=== PATIENT | male | born 1950 | race Caucasian/White ===

== ENCOUNTER 2022-07-21 10:08 | Inpatient (IN) ==
[2022-07-21] MEDS ORDERED: DUONEB NEB STA (10:12)
[2022-07-21] MEDS ORDERED: SOLU-MEDROL 125 MG IVP STA (10:12)
--- NOTE | 2022-07-21 10:12 | ED.PDOC ---
General ED Provider: Dr. ARNOLD HEART MD Chief Complaint: Shortness of Air Stated Complaint: Patient has advanced COPD and is on home oxygen at 3L/min NC. He presents with dyspnea, productive cough and weakness for one week. Denies fever, chills, chest pain, edema. Time Seen by Provider: 07/21/22 10:12 Primary Care Provider: DENYS FRANCO MD Nursing and Triage Documentation Reviewed and Agree: Yes Does patient meet sepsis criteria?: No System Inflammatory Response Syndrome: Not Applicable Sepsis Protocol: For patient's 13 years and over: Temp is 96.8 and below OR 101 and greater Pulse >90 BPM Resp >20/minute Acutely Altered Mental Status Are patient's symptoms suggestive of a new infection, such as: -Pneumonia -Skin, Soft Tissue -Endocarditis -UTI -Bone, Joint Infection -Implantable Device -Acute Abdominal Infection -Wound Infection -Meningitis -Blood Stream Catheter Infection -Unknown Respiratory Complaint Exam Shortness of Air Complaint/Exam Onset/Duration: one week of dyspnea, productive cough and weakness Symptoms Are: Still present Timing: Constant Initial Severity: Mild Current Severity: Moderate Character: Reports Dyspnea at rest and Dyspnea on exertion Aggravating: Reports Movement Alleviating: Reports Bronchodilators and Oxygen Associated Signs and Symptoms: Reports Cough Related History: Reports Similar episode History of Healthcare-Acquired Pneumonia: No Pulmonary Embolism Risk Factors: Reports None Pseudomonas Risk Factors: Reports None Tuberculosis Risk Factors: Reports None Home Oxygen Use: Yes Respiratory Distress: Mild Stridor Present: No Tracheal Deviation: No Subcutaneous Emphysema: No Accessory Muscle Use: No Retractions: Not Present Diminished Breath Sounds: Yes Prolonged Expiratory Phase: No Unable to Speak Full Sentences: No Fatigue: No Leg Swelling: No Otilia's Sign Present: No Grunting Respirations: No Kussmaul Respirations: No Review of Systems Review Of Systems Constitutional: Reports Weakness Eyes: Reports No symptoms Ears, Nose, Mouth, Throat: Reports No symptoms Respiratory: Reports Cough and Short of air Cardiac: Reports No symptoms GI: Reports No symptoms : Reports No symptoms Musculoskeletal: Reports No symptoms Skin: Reports No symptoms Neurological: Reports No symptoms Endocrine: Reports No symptoms Hematologic/Lymphatic: Reports No symptoms All Other Systems: Reviewed and Negative Physical Exam Physical Exam Appearance: Reports No pain distress, Well-nourished and Other (Chronically ill appearing elderly male who is tachypneic. No use of accessory respiratory muscles. ) Ill-appearing: Moderate Pain Distress: None Eyes: Reports Not Examined ENT: Reports Nose normal and Oropharynx normal Neck: Supple Respiratory: Reports Airway patent, Breath sounds clear, Breath sounds equal, Breath sounds diminished and Respirations nonlabored Cardiovascular: Reports RRR, No rub and No murmur GI/: Reports Soft, Nontender, No masses and Bowel sounds normal Musculoskeletal: Reports No edema Skin: Reports Warm, Dry and Normal color Neurological: Reports Motor intact, Alert and Oriented Psychiatric: Reports Affect appropriate and Mood appropriate Interpretation Radiology Interpretation Radiology Interpretation By: Radiologist Exam Interpreted: Portable CXR (right sided basilar consolidation) EKG Interpretation Time of EKG #1: 10:42 Rate: Normal Rhythm: Sinus Ectopy: PACs [place]: NL ST Segment: Normal Interpretation: normal sinus rhythm with frequent PACS Physician Notification Case Discussed Physician Notified: Dr Franco Time of Notification: 11:26 Comments: Dr Franco requested admission to the hospitalist Critical Care Note Critical Care Note Total Critical Care Time (mins): 0 Course Course Hematology/Chemistry: 07/21/22 10:30 07/21/22 10:30 Orders, Labs, Meds: Lab Review 07/21/22 07/21/22 07/21/22 10:20 10:25 10:30 WBC 13.19 H RBC 3.25 L Hgb 8.7 L Hct 27.9 L MCV 85.8 MCH 26.8 L MCHC 31.2 L RDW Coeff of Blanca 13.8 Plt Count 347 Immature Gran % (Auto) 0.2 Neut % (Auto) 73.6 Lymph % (Auto) 14.9 [place] % (Auto) 11.1 H Eos % (Auto) 0.0 Baso % (Auto) 0.2 Neut # (Auto) 9.7 H Lymph # (Auto) 2.0 [place] # (Auto) 1.5 Eos # (Auto) 0.0 Baso # (Auto) 0.0 Immature Gran # (Auto) 0.0 Puncture Site Rrad Base Excess 25.5 H O2 Saturation 92.9 L ABG pH 7.49 H ABG pCO2 64.0 H ABG pO2 61.0 L ABG HCO3 48.8 H ABG Total CO2 50.8 H Luis Felipe Test Pos Hemoglobin 1.6 H Oxyhemoglobin 88.3 L Carboxyhemoglobin 1.9 H Total Hemoglobin 9.7 L O2 Delivery Device Cannula Oxygen Liter Flow 3.00 Sodium Potassium Chloride Carbon Dioxide Anion Gap BUN Creatinine Estimated GFR (MDRD) BUN/Creatinine Ratio Glucose Calcium Total Bilirubin AST ALT Alkaline Phosphatase Troponin I NT-Pro-B Natriuret Pep Total Protein Albumin Globulin Albumin/Globulin Ratio Influ A Molecular Assay Negative by naat Influ B Molecular Assay Negative by naat 07/21/22 10:30 WBC RBC Hgb Hct MCV MCH MCHC RDW Coeff of Blanca Plt Count Immature Gran % (Auto) Neut % (Auto) Lymph % (Auto) [place] % (Auto) Eos % (Auto) Baso % (Auto) Neut # (Auto) Lymph # (Auto) [place] # (Auto) Eos # (Auto) Baso # (Auto) Immature Gran # (Auto) Puncture Site Base Excess O2 Saturation ABG pH ABG pCO2 ABG pO2 ABG HCO3 ABG Total CO2 Luis Felipe Test Hemoglobin Oxyhemoglobin Carboxyhemoglobin Total Hemoglobin O2 Delivery Device Oxygen Liter Flow Sodium 135.1 Potassium 3.59 Chloride 88.3 L Carbon Dioxide 38.1 H Anion Gap 12.29 BUN 29.1 H Creatinine 1.52 H Estimated GFR (MDRD) 45.00 BUN/Creatinine Ratio 19.14 Glucose 125.2 H Calcium 8.49 Total Bilirubin 0.33 AST 53.0 ALT 21.4 Alkaline Phosphatase 75.2 Troponin I 0.016 NT-Pro-B Natriuret Pep 309.000 H Total Protein 7.39 Albumin 3.96 Globulin 3.43 Albumin/Globulin Ratio 1.15 Influ A Molecular Assay Influ B Molecular Assay Orders Category Date Time Status ABG DRAW REQUEST Stat CARDIO 07/21/22 10:21 Completed EKG-(ED ONLY) Stat CARDIO 07/21/22 10:12 Completed NEBULIZER TREATMENT Stat CARDIO 07/21/22 10:13 Completed ABG COOX Stat LAB 07/21/22 10:25 Completed CBC W/ AUTO DIFF Stat LAB 07/21/22 10:30 Completed CMP [COMPREHENSIVE METABOLIC PANEL] Stat LAB 07/21/22 10:30 Completed COVID [SARS COV-2 RNA RAPID IRWIN] Stat LAB 07/21/22 10:20 Received FLU A & B MOLECULAR [FLU A/B MOLECULAR] Stat LAB 07/21/22 10:20 Completed NT-PROBNP Stat LAB 07/21/22 10:30 Completed TROPONIN I Stat LAB 07/21/22 10:30 Completed URINALYSIS C & S IF INDICATED Stat LAB 07/21/22 10:13 Uncollected Ipratropium/Albuterol Neb [Duoneb] MEDS 07/21/22 10:12 Discontinued 3 ml NEB ONCE STA Methylprednisolone Sod Succ/Pf [Solu-Medrol 125 mg] MEDS 07/21/22 10:12 Discontinued 125 mg IVP ONCE STA CXR [CHEST, 1V AP ONLY] Stat RADS 07/21/22 10:12 Completed Medications Discontinued Medications Generic Name Dose Route Start Last Admin Trade Name Colleen PRN Reason Stop Dose Admin Albuterol/Ipratropium 3 ml 07/21/22 10:12 07/21/22 10:36 Ipratropium/Albuterol Vial.Neb NEB 07/21/22 10:13 3 ml ONCE STA Administration Methylprednisolone Sodium Succinate 125 mg 07/21/22 10:12 07/21/22 10:21 Methylprednisolone Sod Succ/Pf 125 Mg/2 Ml Vial IVP 07/21/22 10:13 125 mg ONCE STA Administration Vital Signs: Temp Pulse Resp BP Pulse Ox 07/21/22 10:12 98.6 F 98 16 123/57 L 92 L Discharge Plan Discharge Patient Disposition: ADMITTED INPATIENT Discharge Problem: Community acquired pneumonia, COPD (chronic obstructive pulmonary disease), Acute on chronic respiratory failure with hypoxia and hypercapnia, Acute renal insufficiency, Anemia Did you review [place]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
[2022-07-21 10:32] LABS: ABG O2 HGB 88.3 % (95-100); ABG PH 7.49 (7.35-7.45); BEecf 25.5 (-2.0-3.0); COHb 1.9 (0.5-1.5); HCO3 48.8 (21-28); MetHb 1.6 (0-1.5); TCO2 50.8 (19-24); sO2 92.9 % (94-98); tHb 9.7 g/dl (11.7-17.4)
[2022-07-21 10:34] LABS: BASOPHILS % (AUTO) 0.2 % (0.0-3.0); HEMATOCRIT 27.9 % (42.0-52.0); HEMOGLOBIN 8.7 g/dl (14.0-18.0); IMMATURE GRANULOCYTE % (AUTO) 0.2 % (0.0-5.0); LYMPHOCYTES % (AUTO) 14.9 (10.0-50.0); MEAN CORPUSCULAR HEMOGLOBIN 26.8 pg (27.0-31.0); MEAN CORPUSCULAR HGB CONC 31.2 (31.8-35.4); MEAN CORPUSCULAR VOLUME 85.8 fl (80.0-94.0); MONOCYTES # (AUTO) 1.5 K/uL (0.4-2.0); MONOCYTES % (AUTO) 11.1 (0-10); NEUTROPHILS # (AUTO) 9.7 K/ul (2.0-6.9); NEUTROPHILS % (AUTO) 73.6 % (42.2-75.2); PLATELET COUNT 347 10^3/uL (140-440); RDW COEFFICIENT OF VARIATION 13.8 % (11.6-14.8); RED BLOOD COUNT 3.25 10^6/ul (4.70-6.10); WHITE BLOOD COUNT 13.19 K/ul (4.2-10.2)
[2022-07-21 10:47] LABS: ALANINE AMINOTRANSFERASE 21.4 U/L (0-50); ALBUMIN 3.96 g/dL (3.5-5.0); ALKALINE PHOSPHATASE 75.2 U/L (56-119); BILIRUBIN,TOTAL 0.33 mg/dL (0.2-1.3); BLOOD UREA NITROGEN 29.1 mg/dL (9-20); CALCIUM 8.49 mg/dL (8.4-10.2); CHLORIDE 88.3 mmol/L (98-107); CREATININE 1.52 mg/dL (0.60-1.10); GLUCOSE 125.2 mg/dL (74-106); POTASSIUM 3.59 mmol/L (3.5-5.1); SODIUM 135.1 mmol/L (134.5-145); TOTAL PROTEIN 7.39 g/dL (6.3-8.2)
[2022-07-21 10:53] LABS: CARBON DIOXIDE 38.1 mmol/L (22-30.0)
[2022-07-21 10:55] LABS: MOLECULAR FLU A NEGATIVE BY NAAT (NEGATIVE); MOLECULAR FLU B NEGATIVE BY NAAT (NEGATIVE)
[2022-07-21 10:58] LABS: TROPONIN I 0.016 ng/ml (0.0000-0.120)
--- NOTE | 2022-07-21 11:15 | DI ---
EXAM: Chest one view, frontal view only. HISTORY: Dyspnea. COMPARISON: 10/18/2012. FINDINGS: Heart size normal. Consolidation right lung base. Bibasilar bronchial thickening and ret icular opacities. Calcified granulomatous changes noted. No pleural effusion or pneumothorax. Old left-sided rib fractures. IMPRESSION: Suspect bibasilar pneumonia, greater on the right.
--- NOTE | 2022-07-21 11:44 | PCM ---
Chief Complaint Chief Complaint: dyspnea and weakness History of Present Illness History of Present Illness: Patient presents with productive cough, increasing dyspnea and weakness for one week. He is admitted now with pneumonia, acute renal insufficiency and acute on chronic respiratory failure with hypoxia and hypercapnia. Review of Systems Constitutional: Reports Weakness Eyes: Reports No symptoms Ears: Reports No symptoms Nose: Reports No symptoms Throat: Reports No symptoms Mouth: Reports No symptoms Respiratory: Reports Cough and Shortness of air Cardiovascular: Reports No symptoms Gastrointestinal: Reports No symptoms Genitourinary: Reports No symptoms Neurological: Reports No symptoms Musculoskeletal: Reports No symptoms Skin: Reports No symptoms Immunology: Reports No symptoms Hematology: Reports No symptoms Endocrine: Reports No symptoms Psychiatric: Reports No symptoms Allergies Allergies Allergy/AdvReac Type Severity Reaction Status Date / Time No Known Allergies Allergy Unverified 07/21/22 10:16 [facility] Medical History (Updated 07/21/22 @ 11:32 by ALESHA NICHOLAS RN) COPD (chronic obstructive pulmonary disease) Body Composition Height: 5 ft 11 in Weight: 92 kg Body Mass Index (BMI): 28.3 Vital Signs Temperature: 98.6 F Pulse Rate: 98 Respiratory Rate: 16 Blood Pressure: 123/57 O2 Sat by Pulse Oximetry: 92 Physical Examination Appearance: Reports Ill-appearing, No pain distress, Well-nourished and Other (Tachypneic without respiratory distress.) Ill-appearing: Moderate Pain Distress: None Eyes: Reports Not Examined ENT: Reports Nose normal and Oropharynx normal Neck: Supple Respiratory: Reports Airway patent, Breath sounds clear, Breath sounds equal, Breath sounds diminished and Respirations nonlabored Cardiovascular: Reports RRR, No rub and No murmur GI/: Reports Soft, Nontender, No masses, Bowel sounds normal and No Organomegaly Musculoskeletal: Reports No edema Skin: Reports Warm, Dry and Normal color Neurological: Reports Sensation intact, Motor intact, Alert and Oriented Psychiatric: Reports Affect appropriate and Mood appropriate Lab/Tests/Diagnostic Imaging Lab/Tests/Diagnostic Imaging: Lab Review 07/21/22 07/21/22 07/21/22 10:20 10:25 10:30 WBC 13.19 H RBC 3.25 L Hgb 8.7 L Hct 27.9 L MCV 85.8 MCH 26.8 L MCHC 31.2 L RDW Coeff of Blanca 13.8 Plt Count 347 Immature Gran % (Auto) 0.2 Neut % (Auto) 73.6 Lymph % (Auto) 14.9 [place] % (Auto) 11.1 H Eos % (Auto) 0.0 Baso % (Auto) 0.2 Neut # (Auto) 9.7 H Lymph # (Auto) 2.0 [place] # (Auto) 1.5 Eos # (Auto) 0.0 Baso # (Auto) 0.0 Immature Gran # (Auto) 0.0 Puncture Site Rrad Base Excess 25.5 H O2 Saturation 92.9 L ABG pH 7.49 H ABG pCO2 64.0 H ABG pO2 61.0 L ABG HCO3 48.8 H ABG Total CO2 50.8 H Luis Felipe Test Pos Hemoglobin 1.6 H Oxyhemoglobin 88.3 L Carboxyhemoglobin 1.9 H Total Hemoglobin 9.7 L O2 Delivery Device Cannula Oxygen Liter Flow 3.00 Sodium Potassium Chloride Carbon Dioxide Anion Gap BUN Creatinine Estimated GFR (MDRD) BUN/Creatinine Ratio Glucose Calcium Total Bilirubin AST ALT Alkaline Phosphatase Troponin I NT-Pro-B Natriuret Pep Total Protein Albumin Globulin Albumin/Globulin Ratio Influ A Molecular Assay Negative by naat Influ B Molecular Assay Negative by naat 07/21/22 10:30 WBC RBC Hgb Hct MCV MCH MCHC RDW Coeff of Blanca Plt Count Immature Gran % (Auto) Neut % (Auto) Lymph % (Auto) [place] % (Auto) Eos % (Auto) Baso % (Auto) Neut # (Auto) Lymph # (Auto) [place] # (Auto) Eos # (Auto) Baso # (Auto) Immature Gran # (Auto) Puncture Site Base Excess O2 Saturation ABG pH ABG pCO2 ABG pO2 ABG HCO3 ABG Total CO2 Luis Felipe Test Hemoglobin Oxyhemoglobin Carboxyhemoglobin Total Hemoglobin O2 Delivery Device Oxygen Liter Flow Sodium 135.1 Potassium 3.59 Chloride 88.3 L Carbon Dioxide 38.1 H Anion Gap 12.29 BUN 29.1 H Creatinine 1.52 H Estimated GFR (MDRD) 45.00 BUN/Creatinine Ratio 19.14 Glucose 125.2 H Calcium 8.49 Total Bilirubin 0.33 AST 53.0 ALT 21.4 Alkaline Phosphatase 75.2 Troponin I 0.016 NT-Pro-B Natriuret Pep 309.000 H Total Protein 7.39 Albumin 3.96 Globulin 3.43 Albumin/Globulin Ratio 1.15 Influ A Molecular Assay Influ B Molecular Assay Orders Category Date Time Status ADMIT PATIENT INPATIENT .TO [facility] (MONITORED BED) ADMISSION 07/21/22 11:31 Ordered ABG DRAW REQUEST Stat CARDIO 07/21/22 10:21 Completed EKG-(ED ONLY) Stat CARDIO 07/21/22 10:12 Completed NEBULIZER TREATMENT Routine CARDIO 07/21/22 11:36 Ordered NEBULIZER TREATMENT Stat CARDIO 07/21/22 10:13 Completed OXYGEN Routine CARDIO 07/21/22 11:32 Ordered ACTIVITY .Up With Assistance CARE 07/21/22 11:31 Ordered INTAKE & OUTPUT Q8HR CARE 07/21/22 11:31 Ordered IP: INSERT SALINE LOCK ONCE CARE 07/21/22 11:31 Ordered TELEMETRY MONITORING TELE CARE 07/21/22 11:31 Ordered VITAL SIGNS Q4HR CARE 07/21/22 11:32 Ordered VITAL SIGNS Q8HR CARE 07/21/22 11:31 Ordered REGULAR DIET DIETARY 07/21/22 Lunch Ordered ABG COOX Stat LAB 07/21/22 10:25 Completed CBC W/ AUTO DIFF DAILY@0600 LAB 07/22/22 06:00 Ordered CBC W/ AUTO DIFF DAILY@0600 LAB 07/23/22 06:00 Ordered CBC W/ AUTO DIFF Stat LAB 07/21/22 10:30 Completed CMP [COMPREHENSIVE METABOLIC PANEL] Stat LAB 07/21/22 10:30 Completed COMPREHENSIVE METABOLIC PANEL DAILY@0600 LAB 07/22/22 06:00 Ordered COMPREHENSIVE METABOLIC PANEL DAILY@0600 LAB 07/23/22 06:00 Ordered COVID [SARS COV-2 RNA RAPID IRWIN] Stat LAB 07/21/22 10:20 Received FLU A & B MOLECULAR [FLU A/B MOLECULAR] Stat LAB 07/21/22 10:20 Completed NT-PROBNP Stat LAB 07/21/22 10:30 Completed TROPONIN I Stat LAB 07/21/22 10:30 Completed URINALYSIS C & S IF INDICATED Stat LAB 07/21/22 10:13 Uncollected 1 gm/50 ml IV Daily Jovita MEDS 07/21/22 12:00 Ordered Ceftriaxone/D5w 1 gm Premix [Rocephin 1 gm/50 ml D5w] 1 gm in 50 ml IV DAILY Azithromycin Inj [Zithromax] 500 mg MEDS 07/21/22 12:00 Ordered 0.9 % Sodium Chloride [Sodium Chloride] 250 ml IV DAILY Enoxaparin Sodium [Lovenox] MEDS 07/21/22 12:00 Ordered 30 mg SUBCUT DAILY Ipratropium/Albuterol Neb [Duoneb] MEDS 07/21/22 10:12 Discontinued 3 ml NEB ONCE STA Ipratropium/Albuterol Neb [Duoneb] MEDS 07/21/22 14:00 Ordered 3 ml NEB RTQ4H Methylprednisolone Sod Succ/Pf [Solu-Medrol 125 mg] MEDS 07/21/22 10:12 Discontinued 125 mg IVP ONCE STA Methylprednisolone Sod Succ/Pf [Solu-Medrol 125 mg] MEDS 07/21/22 12:00 Ordered 125 mg IVP Q8H Potassium Chloride in 0.9%NaCl [Sodium Chloride 0.9%- MEDS 07/21/22 12:00 Ordered KCl 20 Meq] 1,000 ml IV 100 mls/hr RESUSCITATION STATUS Routine OTHERS 07/21/22 11:31 Ordered CXR [CHEST, 1V AP ONLY] Stat RADS 07/21/22 10:12 Completed CXR [CHEST, 1V AP ONLY] Timed RADS 07/22/22 07:31 Ordered Medications Discontinued Medications Generic Name Dose Route Start Last Admin Trade Name Freq PRN Reason Stop Dose Admin Albuterol/Ipratropium 3 ml 07/21/22 10:12 07/21/22 10:36 Ipratropium/Albuterol Vial.Neb NEB 07/21/22 10:13 3 ml ONCE STA Administration Methylprednisolone Sodium Succinate 125 mg 07/21/22 10:12 07/21/22 10:21 Methylprednisolone Sod Succ/Pf 125 Mg/2 Ml Vial IVP 07/21/22 10:13 125 mg ONCE STA Administration Assessment (1) Community acquired pneumonia: Status: Acute Code(s): J18.9 - Pneumonia, unspecified organism SNOMED Code(s): 272111539 (2) COPD (chronic obstructive pulmonary disease): Status: Acute Code(s): J44.9 - Chronic obstructive pulmonary disease, unspecified SNOMED Code(s): 47153059 (3) Acute on chronic respiratory failure with hypoxia and hypercapnia: Status: Acute Code(s): J96.21 - Acute and chronic respiratory failure with hypoxia; J96.22 - Acute and chronic respiratory failure with hypercapnia SNOMED Code(s): 88428863252579 (4) Acute renal insufficiency: Status: Acute Code(s): N28.9 - Disorder of kidney and ureter, unspecified SNOMED Code(s): 896603673 (5) Anemia: Status: Acute Code(s): D64.9 - Anemia, unspecified SNOMED Code(s): 855716799 Plan Plan: Admit for IV antibiotics, neb treatments, IV steroids. PT to see for strengthening and conditioning. Hemoccult stools.
[2022-07-21] MEDS ORDERED: SODIUM CHLORIDE 0.9%-KCL 20 MEQ 1,000 ML IV SCH (12:00)
[2022-07-21] MEDS ORDERED: SOLU-MEDROL 125 MG IVP SCH (12:00)
[2022-07-21] MEDS ORDERED: LOVENOX SUBCUT SCH (12:00)
[2022-07-21 12:07] LABS: SARS COV-2 RNA RAPID NAAT POSITIVE (NEGATIVE)
[2022-07-21] MEDS: ROCEPHIN 1 GM/50 ML D5W 1 GM/50 ML BAG IV SCH (12:15)
[2022-07-21 12:58] VITALS: BMI 28.5
[2022-07-21 13:17] LABS: BILIRUBIN,URINE Negative (NEGATIVE); CLARITY,URINE Clear (CLEAR); COLOR,URINE Yellow (YELLOW); GLUCOSE, URINE (UA) Negative (NEGATIVE); KETONES,URINE Negative (NEGATIVE); LEUKOCYTE ESTERASE ,URINE Negative (NEGATIVE); NITRITE,URINE Negative (NEGATIVE); PROTEIN,URINE 1+ (NEGATIVE); URINE, BLOOD 1+ (NEGATIVE); UROBILINOGEN,URINE 0.2 (0.2)
[2022-07-21 13:27] LABS: MUCUS,URINE TRACE (NOT PRESENT)
[2022-07-21] MEDS ORDERED: TYLENOL PO PRN (13:39)
[2022-07-21] MEDS ORDERED: NITROSTAT SL PRN (13:39)
[2022-07-21] MEDS ORDERED: ATROPINE SULFATE PFS IVP PRN (13:39)
[2022-07-21] MEDS ORDERED: VEKLURY 200 MG in SODIUM CHLORIDE 250 ML IV ONE (13:41)
[2022-07-21 13:47] LABS: RETICULOCYTE % 0.86 %; RETICULOCYTE HEMOGLOBIN 24.9
[2022-07-21] MEDS ORDERED: VENTOLIN HFA (PER PUFF-WITH SPACER) IH PRN (13:57)
[2022-07-21] MEDS ORDERED: TRIAMTERENE HYDROCHLOROTHIAZID PO PRN (13:57)
[2022-07-21 13:59] LABS: IRON 13.5 ug/dL (49-181)
[2022-07-21] MEDS: SODIUM CHLORIDE 1,000 ML IV SCH (14:13)
[2022-07-21] MEDS: DUONEB NEB SCH ×3 (14:13→21:00)
[2022-07-21] MEDS: ZITHROMAX 500 MG in SODIUM CHLORIDE 250 ML IV SCH (14:14)
[2022-07-21] MEDS: VITAMIN D PO SCH (14:30)
[2022-07-21] MEDS ORDERED: DYAZIDE PO PRN (14:36)
[2022-07-21 14:56] LABS: PROTHROMBIN TIME 10.3 SEC (9.3-11.0)
[2022-07-21] MEDS: SYMBICORT 160-4.5 MCG INHALER IH SCH ×2 (15:17→20:22)
[2022-07-21 15:53] LABS: FOLATE > 20.00 ng/mL
[2022-07-21] MEDS ORDERED: LASIX IVP ONE (16:47)
[2022-07-21] MEDS ORDERED: DECADRON IM STA (16:47)
[2022-07-21 17:45] LABS: ABG O2 HGB 95.1 % (95-100); ABG PH 7.36 (7.35-7.45); BEecf 19.2 (-2.0-3.0); COHb 2.1 (0.5-1.5); HCO3 44.6 (21-28); sO2 96.4 % (94-98); tHb 8.4 g/dl (11.7-17.4)
[2022-07-21] MEDS: PROTONIX IV IVP SCH (18:02)
[2022-07-21] MEDS: PEPCID PO SCH (18:04)
[2022-07-21] MEDS: CARDIZEM PO SCH (20:20)
[2022-07-21] MEDS ORDERED: SYMBICORT 80-4.5 MCG INHALER IH SCH (21:00)
[2022-07-21 21:10] LABS: OCCULT BLOOD SAMPLE 1 POSITIVE (NEGATIVE)
[2022-07-22] MEDS: DUONEB NEB SCH ×6 (01:28→23:00)
[2022-07-22] MEDS: SODIUM CHLORIDE 1,000 ML IV SCH ×3 (03:56→23:34)
[2022-07-22 05:37] LABS: BASOPHILS % (AUTO) 0.1 % (0.0-3.0); HEMATOCRIT 26.2 % (42.0-52.0); HEMOGLOBIN 7.9 g/dl (14.0-18.0); IMMATURE GRANULOCYTE % (AUTO) 0.2 % (0.0-5.0); LYMPHOCYTES # (AUTO) 0.8 K/uL (0.60-3.4); LYMPHOCYTES % (AUTO) 9.4 (10.0-50.0); MEAN CORPUSCULAR HEMOGLOBIN 26.4 pg (27.0-31.0); MEAN CORPUSCULAR HGB CONC 30.2 (31.8-35.4); MEAN CORPUSCULAR VOLUME 87.6 fl (80.0-94.0); MONOCYTES # (AUTO) 0.5 K/uL (0.4-2.0); MONOCYTES % (AUTO) 5.6 (0-10); NEUTROPHILS # (AUTO) 6.8 K/ul (2.0-6.9); NEUTROPHILS % (AUTO) 84.7 % (42.2-75.2); PLATELET COUNT 344 10^3/uL (140-440); RDW COEFFICIENT OF VARIATION 13.9 % (11.6-14.8); RED BLOOD COUNT 2.99 10^6/ul (4.70-6.10); WHITE BLOOD COUNT 8.06 K/ul (4.2-10.2)
[2022-07-22 05:47] LABS: ABG O2 HGB 95.3 % (95-100); BEecf 15.3 (-2.0-3.0); COHb 3.9 (0.5-1.5); HCO3 38.3 (21-28); MetHb 1.7 (0-1.5); TCO2 39.8 (19-24); sO2 98.5 % (94-98)
[2022-07-22 05:48] LABS: ABG PH 7.51 (7.35-7.45)
[2022-07-22 05:50] LABS: PROTHROMBIN TIME 9.9 SEC (9.3-11.0)
[2022-07-22 05:51] LABS: ALANINE AMINOTRANSFERASE 23.6 U/L (0-50); ALBUMIN 3.7 g/dL (3.5-5.0); ALKALINE PHOSPHATASE 61.1 U/L (56-119); ASPARTATE AMINO TRANSFERASE 44.9 U/L (17-59); BILIRUBIN,TOTAL 0.18 mg/dL (0.2-1.3); BLOOD UREA NITROGEN 36.7 mg/dL (9-20); CALCIUM 8.38 mg/dL (8.4-10.2); CREATININE 1.38 mg/dL (0.60-1.10); GLUCOSE 181.7 mg/dL (74-106); POTASSIUM 3.46 mmol/L (3.5-5.1); SODIUM 136.1 mmol/L (134.5-145); TOTAL PROTEIN 6.92 g/dL (6.3-8.2)
[2022-07-22] MEDS: PROTONIX IV IVP SCH ×2 (05:51→17:43)
[2022-07-22] MEDS: PEPCID PO SCH ×2 (05:51→16:48)
[2022-07-22 05:57] LABS: CARBON DIOXIDE 36.5 mmol/L (22-30.0)
[2022-07-22] MEDS: XANAX PO SCH (08:12)
[2022-07-22] MEDS: VITAMIN D PO SCH (08:12)
[2022-07-22] MEDS: CARDIZEM PO SCH ×2 (08:12→20:03)
[2022-07-22] MEDS: PRAVACHOL PO SCH (08:13)
[2022-07-22] MEDS: SYMBICORT 160-4.5 MCG INHALER IH SCH ×2 (08:13→20:03)
[2022-07-22] MEDS: DECADRON IVP SCH (08:15)
[2022-07-22 08:21] LABS: OCCULT BLOOD SAMPLE 2 NO SPECIMEN RECEIVED (NEGATIVE); OCCULT BLOOD SAMPLE 3 NO SPECIMEN RECEIVED (NEGATIVE)
[2022-07-22] MEDS: ROCEPHIN 1 GM/50 ML D5W 1 GM/50 ML BAG IV SCH (08:27)
--- NOTE | 2022-07-22 09:14 | DI ---
EXAM: Frontal view of the chest. HISTORY: Pneumonia. COMPARISON: Chest radiograph 07/21/2022. FINDINGS: Atherosclerotic calcifications of the aorta. Normal heart size. Patchy bilateral opacities in the [id number] lungs. Emphysema. Scattered calcified granulomas. No visible pleural effusion or pneumothorax. Old left rib fractures. IMPRESSION: Unchanged bilateral opacities suspicious for pneumonia. Emphysema. Atherosclerosis.
[2022-07-22] MEDS: ZITHROMAX 500 MG in SODIUM CHLORIDE 250 ML IV SCH (10:23)
[2022-07-22] MEDS: K-DUR PO SCH ×2 (12:05→16:48)
[2022-07-22] MEDS: VEKLURY 100 MG in SODIUM CHLORIDE 250 ML IV SCH (12:27)
[2022-07-22 19:06] LABS: HEMATOCRIT 28.4 % (42.0-52.0); HEMOGLOBIN 8.7 g/dl (14.0-18.0)
[2022-07-23] MEDS: DUONEB NEB SCH ×6 (02:00→21:30)
[2022-07-23 04:41] LABS: ABG O2 HGB 95.3 % (95-100); ABG PH 7.43 (7.35-7.45); BEecf 16.9 (-2.0-3.0); COHb 1.6 (0.5-1.5); HCO3 41.2 (21-28); MetHb 1.2 (0-1.5); TCO2 43.1 (19-24); sO2 97.3 % (94-98); tHb 9.4 g/dl (11.7-17.4)
[2022-07-23] MEDS: PEPCID PO SCH ×2 (05:32→17:09)
[2022-07-23] MEDS: PROTONIX IV IVP SCH ×2 (05:32→17:09)
[2022-07-23] MEDS: SODIUM CHLORIDE 1,000 ML IV SCH (05:33)
[2022-07-23 05:58] LABS: BASOPHILS % (AUTO) 0.1 % (0.0-3.0); HEMATOCRIT 28.9 % (42.0-52.0); HEMOGLOBIN 8.9 g/dl (14.0-18.0); IMMATURE GRANULOCYTE # (AUTO) 0.1 (0.0-1.0); IMMATURE GRANULOCYTE % (AUTO) 0.4 % (0.0-5.0); LYMPHOCYTES # (AUTO) 1.1 K/uL (0.60-3.4); LYMPHOCYTES % (AUTO) 8.8 (10.0-50.0); MEAN CORPUSCULAR HEMOGLOBIN 27.1 pg (27.0-31.0); MEAN CORPUSCULAR HGB CONC 30.8 (31.8-35.4); MEAN CORPUSCULAR VOLUME 87.8 fl (80.0-94.0); MONOCYTES % (AUTO) 7.5 (0-10); NEUTROPHILS # (AUTO) 10.7 K/ul (2.0-6.9); NEUTROPHILS % (AUTO) 83.2 % (42.2-75.2); PLATELET COUNT 376 10^3/uL (140-440); RDW COEFFICIENT OF VARIATION 13.9 % (11.6-14.8); RED BLOOD COUNT 3.29 10^6/ul (4.70-6.10)
[2022-07-23 06:15] LABS: ALANINE AMINOTRANSFERASE 22.9 U/L (0-50); ALBUMIN 3.53 g/dL (3.5-5.0); BILIRUBIN,TOTAL 0.24 mg/dL (0.2-1.3); BLOOD UREA NITROGEN 42.8 mg/dL (9-20); CALCIUM 8.19 mg/dL (8.4-10.2); CARBON DIOXIDE 38.1 mmol/L (22-30.0); CHLORIDE 96.6 mmol/L (98-107); CREATININE 1.12 mg/dL (0.60-1.10); GLUCOSE 139.9 mg/dL (74-106); POTASSIUM 3.66 mmol/L (3.5-5.1); SODIUM 136.6 mmol/L (134.5-145); TOTAL PROTEIN 6.62 g/dL (6.3-8.2)
[2022-07-23 06:25] LABS: PROTHROMBIN TIME 10.3 SEC (9.3-11.0)
[2022-07-23] MEDS: ROCEPHIN 1 GM/50 ML D5W 1 GM/50 ML BAG IV SCH (09:46)
[2022-07-23] MEDS: DECADRON IVP SCH (09:46)
[2022-07-23] MEDS: PRAVACHOL PO SCH (09:47)
[2022-07-23] MEDS: K-DUR PO SCH ×2 (09:47→17:09)
[2022-07-23] MEDS: XANAX PO SCH (09:47)
[2022-07-23] MEDS: VITAMIN D PO SCH (09:47)
[2022-07-23] MEDS: SYMBICORT 160-4.5 MCG INHALER IH SCH ×2 (09:47→20:48)
[2022-07-23] MEDS: CARDIZEM PO SCH ×2 (09:47→20:48)
--- NOTE | 2022-07-23 10:30 | PCM.PROG ---
Attending Provider: ATTENDING PROVIDER: Dr. DENYS FRANCO MD This patient is seen with Maria Dolores Whitaker, Nurse Practitioner. DATE OF SERVICE: 07/23/22 SUBJECTIVE: This 72 year old /WHITE M was hospitalized 07/21/22. The patient is at 40% on Vapotherm, having sleep apnea at night so making some adjustments. Will do CT chest today. Hemoglobin is up to 89 after transfusion. The patient is eating well. No fever. REVIEW OF SYSTEMS: CONSTITUTIONAL: Weakness. No night sweats. No fatigue, malaise, lethargy. No fever or chills. HEENT: Eyes: No visual changes. No eye pain. No eye discharge. ENT: No runny nose. No epistaxis. No sinus pain. No odynophagia. No congestion. RESPIRATORY: Cough. No hemoptysis. Shortness of breath. CARDIOVASCULAR: No angina symptoms. No CHF symptoms. No atypical chest pain for CAD. No palpitations. No orthopnea.. GASTROINTESTINAL: No abdominal pain. No nausea or vomiting. No diarrhea or constipation. No hematemesis. No hematochezia. GENITOURINARY: No urgency. No frequency. No dysuria. No hematuria. No obstructive symptoms. No discharge. No pain. No significant abnormal bleeding. MUSCULOSKELETAL: No musculoskeletal pain; no joint swelling. NEUROLOGICAL: Awake, alert, oriented to time, place and person. No headache. No neck pain. No syncope. No seizures. No dizziness. PSYCHIATRIC: Not anxious. No depression. No suicidal thoughts. No homicidal thoughts. SKIN: No rash. No lesions. No wounds. ENDOCRINE: No unexplained weight loss. No weight gain. HEMATOLOGIC/LYMPHATIC: No anemia. No purpura. No petechiae. No prolonged or excessive bleeding. No palpable lymph nodes. PHYSICAL EXAMINATION: GENERAL: The patient is awake, alert and oriented, lying/sitting in bed in no distress. VITAL SIGNS: Temperature 97.8 F, Pulse 88, Respiratory Rate 14, BP 118/69, Pulse Ox 93% HEENT: Head normocephalic, atraumatic. Eyes: Extraocular muscles are intact. Pupils are equal, round and reactive to light and accommodation. Ears: No lesions. Nose appeared normal. Throat: No exudate or erythema. NECK: Supple. No JVD, no carotid bruit. No lymphadenopathy or thyromegaly. LUNGS: Diminished breath sounds with bilateral wheezing. Percussion note normal. Chest symmetrical. HEART: S1, S2, no S3. No murmurs. No cyanosis or clubbing. No ascites. Pulses: Dorsalis pedis and posterior tibial pulses +1 to +2 both sides. ABDOMEN: Soft. Non-tender. Bowel sounds active. No CVA tenderness. No mass felt. EXTREMITIES: No edema. Full range of motion of all extremities, equal. NEUROLOGIC: No focal deficit. Cranial nerves II through XII are grossly intact. No headache. No double vision. SKIN: Not dry. Intact. Turgor-normal. LYMPHATIC: No palpable lymph nodes/no lymphedema. MUSCULOSKELETAL: Normal joints with no swelling. Muscle tone is normal. LAB REVIEW: 07/23/22 04:58 07/23/22 04:58 07/23/22 04:58: PT 10.3, INR 0.99 07/23/22 04:58: Sodium 136.6, Potassium 3.66, Chloride 96.6 L, Carbon Dioxide 38.1 H, Anion Gap 5.56, BUN 42.8 H, Creatinine 1.12 H, Estimated GFR (MDRD) 64.00, BUN/Creatinine Ratio 38.21, Glucose 139.9 H, Calcium 8.19 L, Total Bilirubin 0.24, AST 34.0, ALT 22.9, Alkaline Phosphatase 56.0, Total Protein 6.62, Albumin 3.53, Globulin 3.09, Albumin/Globulin Ratio 1.14 07/23/22 04:58: WBC 12.80 H, RBC 3.29 L, Hgb 8.9 L, Hct 28.9 L, MCV 87.8, MCH 27.1, MCHC 30.8 L, RDW Coeff of Blanca 13.9, Plt Count 376, Immature Gran % (Auto) 0.4, Neut % (Auto) 83.2 H, Lymph % (Auto) 8.8 L, [place] % (Auto) 7.5, Eos % (Auto) 0.0, Baso % (Auto) 0.1, Neut # (Auto) 10.7 H, Lymph # (Auto) 1.1, [place] # (Auto) 1.0, Eos # (Auto) 0.0, Baso # (Auto) 0.0, Immature Gran # (Auto) 0.1 07/23/22 04:07: Puncture Site Rbrach, Base Excess 16.9 H, O2 Saturation 97.3, ABG pH 7.43, ABG pCO2 62.0 H, ABG pO2 92.0, ABG HCO3 41.2 H, ABG Total CO2 43.1 H, Luis Felipe Test Pos, Hemoglobin 1.2, Oxyhemoglobin 95.3, Carboxyhemoglobin 1.6 H, Total Hemoglobin 9.4 L, O2 Delivery Device Vapotherm, FiO2 % 55.0 07/22/22 18:59: Hgb 8.7 L, Hct 28.4 L 07/21/22 14:46: Blood Type A POSITIVE, Antibody Screen Negative, Crossmatch (AHG) See Detail 07/21/22 10:32: Transferrin 251 ASSESSMENT: Please see below. 1. Bilateral pneumonia. 2. Acute respiratory failure. 3. Covid 19 with underlying COPD. 4. Renal azotemia. 5. Anemia with positive stool. PLAN: 1. Will discontinue IV fluids after this bag. 2. Chest CT with and without. Plan and coordination of the patient's care discussed in the presence of Oil Agent and nurse. CONDITION: Stable SCRIBED BY: SY HILL, [employer] scribed while in presence of service performed by Dr. Franco/Maria Dolores Whitaker APRN on 07/23/22 ([id number])
[2022-07-23] MEDS: ZITHROMAX 500 MG in SODIUM CHLORIDE 250 ML IV SCH ×2 (10:43→12:27)
--- NOTE | 2022-07-23 15:11 | CT ---
EXAM: CT Chest with and without contrast. HISTORY: Cough, shortness of breath. COMPARISON: Radiograph 1 day prior. TECHNIQUE: Multiple axial images of the chest were obtained prior to and following intravenous admin istration of 100 mL Omnipaque 358, low osmolar. Images were reformatted in the sagittal and coronal planes. FINDINGS: No mediastinal, hilar, or axillary lymphadenopathy. Calcified lymph nodes are present. Heart is enlarged. Coronary artery and aortic calcifications present. No significant pericardial ef fusion. Severe emphysema present. Linear scarring within the left upper lobe. Scattered linear opacities se en in both lungs predominately the lower lobes. Somewhat more irregular linear opacity within the pe rifissural right upper lobe. No rylie consolidation. Calcified granulomatous changes present. Trac e amount of left pleural fluid. No pneumothorax. Limited images of the upper abdomen demonstrate left renal cyst measuring up to 6 cm. Old appearing T4 and T6 compression deformities. IMPRESSION: Severe emphysema with probable areas of scarring or subsegmental atelectasis. Difficult to exclude r ight upper lobe pneumonia. Recommend follow-up if symptoms persist or worsen. All CT scans are performed using dose optimization techniques as appropriate to the performed exam an d include at least one of the following: Automated exposure control, adjustment of the mA and/or kV according t o size, and the use of iterative reconstruction technique.
[2022-07-23] MEDS: VEKLURY 100 MG in SODIUM CHLORIDE 250 ML IV SCH (15:12)
--- NOTE | 2022-07-23 15:38 | PN ---
DATE OF SERVICE: 07/21/22 SUBJECTIVE: Seen and examined in the emergency room and hospitalized with worsening of respiratory status. The patient has Covid. Patient is Covid positive and has right lung pneumonia. The patient has history of severe chronic lung disease with history of smoking. REVIEW OF SYSTEMS: CONSTITUTIONAL: No night sweats. No fatigue, malaise, lethargy. No fever or chills. HEENT: Eyes: No visual changes. No eye pain. No eye discharge. ENT: No runny nose. No epistaxis. No sinus pain. No sore throat. No odynophagia. No congestion. RESPIRATORY: No cough, no congestion. No hemoptysis. No shortness of breath. CARDIOVASCULAR: No angina symptoms. No CHF symptoms. No atypical chest pain for CAD. No palpitations. No PND. No orthopnea. GASTROINTESTINAL: No abdominal pain. No nausea or vomiting. No diarrhea or constipation. No hematemesis. No hematochezia. GENITOURINARY: No urgency. No frequency. No dysuria. No hematuria. No obstructive symptoms. No discharge. No pain. No significant abnormal bleeding. MUSCULOSKELETAL: No musculoskeletal pain; no joint swelling. NEUROLOGICAL: No headache. No neck pain. No syncope. No seizures. No dizziness. PSYCHIATRIC: Not anxious. No depression. No suicidal thoughts. No homicidal thoughts. SKIN: No rash. No lesions. No wounds. ENDOCRINE: No unexplained weight loss. No weight gain. HEMATOLOGIC/LYMPHATIC: No anemia. No purpura. No petechiae. No prolonged or excessive bleeding. No palpable lymph nodes. PHYSICAL EXAMINATION: GENERAL: The patient is in no distress. HEENT: Head normocephalic, atraumatic. Eyes: Extraocular muscles are intact. Pupils are equal, round and reactive to light and accommodation. Ears: No lesions. Nose appeared normal. Throat: No exudate or erythema. NECK: Supple. No JVD, no carotid bruit. No lymphadenopathy or thyromegaly. LUNGS: Clear to auscultation. Percussion note normal. Chest symmetrical. HEART: S1, S2, no S3. No murmurs. No cyanosis or clubbing. No ascites. Pulses: Dorsalis pedis and posterior tibial pulses +1 to +2 bilaterally. ABDOMEN: Soft. Nontender. Bowel sounds active. No CVA tenderness. No mass felt. EXTREMITIES: No edema. Full range of motion of all extremities, equal. NEUROLOGIC: No focal deficit. Cranial nerves II through XII are grossly intact. No headache. No double vision. SKIN: Not dry. Intact. Turgor - normal. LYMPHATIC: No palpable lymph nodes/no lymphedema. MUSCULOSKELETAL: Normal joints with no swelling. Muscle tone is normal. ASSESSMENT: 1. Acute pneumonitis 2. Covid positive status 3. Respiratory failure PLAN: 1. Steroids 2. Nebs 3. Antibiotics CODE STATUS: DNR TIME SPENT: More than 30 minutes. Plan and coordination of the patient's care discussed in the presence of nurse. SAUL
--- NOTE | 2022-07-23 16:44 | PN ---
DATE OF SERVICE: 07/22/22 SUBJECTIVE: This is a 72 year old white male hospitalized with pneumonia, COPD and Covid positive. Patient says that he is feeling better. His overall condition seems to have improved. His arterial blood gases on 40% FIO2 on Vapotherm, PO2 of 105, PCO2 48, PH 7.5, 98% saturation. He had mild respiratory distress yesterday. His overall respiratory status seems to be stabilized. He is resting well and says he is feeling better. REVIEW OF SYSTEMS: CONSTITUTIONAL: No night sweats. No fatigue, malaise, lethargy. No fever or chills. HEENT: Eyes: No visual changes. No eye pain. No eye discharge. ENT: No runny nose. No epistaxis. No sinus pain. No sore throat. No odynophagia. No congestion. RESPIRATORY: No cough, no congestion. No hemoptysis. No shortness of breath. CARDIOVASCULAR: No angina symptoms. Mild cough. No CHF symptoms. No atypical chest pain for CAD. No palpitations. No PND. No orthopnea. GASTROINTESTINAL: Appetite seems to have improved. No abdominal pain. No nausea or vomiting. No diarrhea or constipation. No hematemesis. No hematochezia. GENITOURINARY: No urgency. No frequency. No dysuria. No hematuria. No obstructive symptoms. No discharge. No pain. No significant abnormal bleeding. MUSCULOSKELETAL: No musculoskeletal pain; no joint swelling. NEUROLOGICAL: No headache. No neck pain. No syncope. No seizures. No dizziness. PSYCHIATRIC: Not anxious. No depression. No suicidal thoughts. No homicidal thoughts. SKIN: No rash. No lesions. No wounds. ENDOCRINE: No unexplained weight loss. No weight gain. HEMATOLOGIC/LYMPHATIC: No anemia. No purpura. No petechiae. No prolonged or excessive bleeding. No palpable lymph nodes. PHYSICAL EXAMINATION: GENERAL: The patient is in no distress. VITAL SIGNS: Temperature 97.8, pulse 85, respiratory rate 22, blood pressure 125/53, pulse ox 98% HEENT: Head normocephalic, atraumatic. Eyes: Extraocular muscles are intact. Pupils are equal, round and reactive to light and accommodation. Ears: No lesions. Nose appeared normal. Throat: No exudate or erythema. NECK: Supple. No JVD, no carotid bruit. No lymphadenopathy or thyromegaly. LUNGS: Decreased breath sounds. Percussion note normal. Chest symmetrical. HEART: S1, S2, no S3. No murmurs. No cyanosis or clubbing. No ascites. Pulses: Dorsalis pedis and posterior tibial pulses +1 to +2 bilaterally. ABDOMEN: Soft. Nontender. Bowel sounds active. No CVA tenderness. No mass felt. EXTREMITIES: No edema. Full range of motion of all extremities, equal. NEUROLOGIC: No focal deficit. Cranial nerves II through XII are grossly intact. No headache. No double vision. SKIN: Not dry. Intact. Turgor - normal. LYMPHATIC: No palpable lymph nodes/no lymphedema. MUSCULOSKELETAL: Normal joints with no swelling. Muscle tone is normal. LABS: Hemoglobin 7.9, hematocrit 26, WBC 8,000, normal differential, creatinine 1.3, BUN 36, potassium 3.4 ASSESSMENT: 1. Covid positive 2. Pneumonia 3. Respiratory failure 4. Chronic lung disease 5. Hypokalemia . 6. Anemia which seems to be symptomatic Plan is to ype and cross match one unit and give him blood because patient's fall status is at risk. He is short of breath at minimal exertion and feeling t his way with evidence of pneumonia Patient has positive stool for occult blood, so it will be worth while to give him one unit for GI blood loss. Patient has been off all blood thinners. His overall respiratory status seems to have improved. Patient was explained about Covid 19 status and its complications. Also was explained about blood transfusion and need for it. Patient doesn't have any evidence of active GI bleed but he may have peptic ulceration as a possibility with all his medical conditions. PLAN: Continue antibiotics, steroids, nebs, inhalers. Patient is on Remdesivir. Give one unit of packed red cells Continue Famotidine, possible side effects and the need for it discussed Agreeable for Remdesivir Condition: Improving. 07/22/22 Extensive TIME SPENT: More than 30 minutes. Plan and coordination of the patient's care discussed in the presence of nurse. ADDENDUM: The patient has hypokalemia so he has been given K-tab 20 mEq twice a day daily. MTDD
[2022-07-24] MEDS: DUONEB NEB SCH ×6 (01:04→22:27)
[2022-07-24 05:00] LABS: ABG O2 HGB 96.7 % (95-100); BEecf 18.5 (-2.0-3.0); COHb 2.6 (0.5-1.5); MetHb 1.1 (0-1.5); TCO2 42.5 (19-24); sO2 99.3 % (94-98); tHb 8.3 g/dl (11.7-17.4)
[2022-07-24 05:14] LABS: BASOPHILS % (AUTO) 0.1 % (0.0-3.0); HEMATOCRIT 28.5 % (42.0-52.0); HEMOGLOBIN 8.6 g/dl (14.0-18.0); IMMATURE GRANULOCYTE # (AUTO) 0.1 (0.0-1.0); IMMATURE GRANULOCYTE % (AUTO) 0.5 % (0.0-5.0); LYMPHOCYTES # (AUTO) 1.1 K/uL (0.60-3.4); LYMPHOCYTES % (AUTO) 10.6 (10.0-50.0); MEAN CORPUSCULAR HEMOGLOBIN 26.5 pg (27.0-31.0); MEAN CORPUSCULAR HGB CONC 30.2 (31.8-35.4); MEAN CORPUSCULAR VOLUME 87.7 fl (80.0-94.0); MONOCYTES # (AUTO) 0.7 K/uL (0.4-2.0); MONOCYTES % (AUTO) 6.2 (0-10); NEUTROPHILS # (AUTO) 8.6 K/ul (2.0-6.9); NEUTROPHILS % (AUTO) 82.6 % (42.2-75.2); PLATELET COUNT 378 10^3/uL (140-440); RDW COEFFICIENT OF VARIATION 14.2 % (11.6-14.8); RED BLOOD COUNT 3.25 10^6/ul (4.70-6.10); WHITE BLOOD COUNT 10.46 K/ul (4.2-10.2)
[2022-07-24 05:31] LABS: ALANINE AMINOTRANSFERASE 24.6 U/L (0-50); ALBUMIN 3.29 g/dL (3.5-5.0); ASPARTATE AMINO TRANSFERASE 35.7 U/L (17-59); BILIRUBIN,TOTAL 0.18 mg/dL (0.2-1.3); BLOOD UREA NITROGEN 36.8 mg/dL (9-20); CALCIUM 8.37 mg/dL (8.4-10.2); CARBON DIOXIDE 39.3 mmol/L (22-30.0); CREATININE 1.12 mg/dL (0.60-1.10); GLUCOSE 130.5 mg/dL (74-106); POTASSIUM 4.02 mmol/L (3.5-5.1); SODIUM 138.7 mmol/L (134.5-145); TOTAL PROTEIN 6.22 g/dL (6.3-8.2)
[2022-07-24 05:35] LABS: ABG PH 7.54 (7.35-7.45)
[2022-07-24 06:00] LABS: PROTHROMBIN TIME 10.8 SEC (9.3-11.0)
[2022-07-24] MEDS: PEPCID PO SCH ×2 (06:42→19:32)
[2022-07-24] MEDS: PROTONIX IV IVP SCH ×2 (06:43→19:31)
[2022-07-24] MEDS: ROCEPHIN 1 GM/50 ML D5W 1 GM/50 ML BAG IV SCH (10:06)
[2022-07-24] MEDS: XANAX PO SCH (10:08)
[2022-07-24] MEDS: VITAMIN D PO SCH (10:09)
[2022-07-24] MEDS: CARDIZEM PO SCH ×2 (10:09→22:48)
[2022-07-24] MEDS: PRAVACHOL PO SCH (10:09)
[2022-07-24] MEDS: K-DUR PO SCH ×2 (10:09→19:31)
[2022-07-24] MEDS: SYMBICORT 160-4.5 MCG INHALER IH SCH ×2 (10:11→22:47)
[2022-07-24] MEDS: DECADRON IVP SCH (14:15)
[2022-07-24] MEDS: VEKLURY 100 MG in SODIUM CHLORIDE 250 ML IV SCH (14:16)
[2022-07-25] MEDS: DUONEB NEB SCH ×6 (01:00→21:20)
[2022-07-25 04:26] LABS: ABG O2 HGB 92.7 % (95-100); BEecf 17.9 (-2.0-3.0); COHb 2.1 (0.5-1.5); HCO3 42.7 (21-28); MetHb 0.6 (0-1.5); TCO2 44.8 (19-24); sO2 93.8 % (94-98)
[2022-07-25 05:27] LABS: BASOPHILS % (AUTO) 0.1 % (0.0-3.0); HEMATOCRIT 31.1 % (42.0-52.0); HEMOGLOBIN 9.5 g/dl (14.0-18.0); IMMATURE GRANULOCYTE # (AUTO) 0.1 (0.0-1.0); IMMATURE GRANULOCYTE % (AUTO) 0.6 % (0.0-5.0); MEAN CORPUSCULAR HEMOGLOBIN 26.8 pg (27.0-31.0); MEAN CORPUSCULAR HGB CONC 30.5 (31.8-35.4); MEAN CORPUSCULAR VOLUME 87.9 fl (80.0-94.0); MONOCYTES # (AUTO) 0.5 K/uL (0.4-2.0); MONOCYTES % (AUTO) 6.6 (0-10); NEUTROPHILS # (AUTO) 6.4 K/ul (2.0-6.9); NEUTROPHILS % (AUTO) 79.7 % (42.2-75.2); PLATELET COUNT 435 10^3/uL (140-440); RDW COEFFICIENT OF VARIATION 14.2 % (11.6-14.8); RED BLOOD COUNT 3.54 10^6/ul (4.70-6.10); WHITE BLOOD COUNT 7.98 K/ul (4.2-10.2)
[2022-07-25 05:40] LABS: PROTHROMBIN TIME 11.2 SEC (9.3-11.0)
[2022-07-25 05:43] LABS: ALANINE AMINOTRANSFERASE 36.7 U/L (0-50); ALBUMIN 3.5 g/dL (3.5-5.0); ALKALINE PHOSPHATASE 58.8 U/L (56-119); BILIRUBIN,TOTAL 0.23 mg/dL (0.2-1.3); BLOOD UREA NITROGEN 36.5 mg/dL (9-20); CALCIUM 8.66 mg/dL (8.4-10.2); CARBON DIOXIDE 39.7 mmol/L (22-30.0); CHLORIDE 98.4 mmol/L (98-107); CREATININE 1.12 mg/dL (0.60-1.10); GLUCOSE 149.5 mg/dL (74-106); POTASSIUM 4.18 mmol/L (3.5-5.1); SODIUM 139.5 mmol/L (134.5-145); TOTAL PROTEIN 6.49 g/dL (6.3-8.2)
[2022-07-25] MEDS: PEPCID PO SCH ×2 (06:12→17:22)
[2022-07-25] MEDS: PROTONIX IV IVP SCH ×2 (06:12→17:21)
[2022-07-25] MEDS: ROCEPHIN 1 GM/50 ML D5W 1 GM/50 ML BAG IV SCH (08:12)
[2022-07-25] MEDS: DECADRON IVP SCH (08:18)
[2022-07-25] MEDS: K-DUR PO SCH ×2 (08:19→17:22)
[2022-07-25] MEDS: XANAX PO SCH (08:19)
[2022-07-25] MEDS: CARDIZEM PO SCH ×2 (08:19→21:01)
[2022-07-25] MEDS: VITAMIN D PO SCH (08:19)
[2022-07-25] MEDS: PRAVACHOL PO SCH (08:20)
[2022-07-25] MEDS: SYMBICORT 160-4.5 MCG INHALER IH SCH ×2 (08:23→21:01)
[2022-07-25] MEDS: VEKLURY 100 MG in SODIUM CHLORIDE 250 ML IV SCH (13:39)
[2022-07-26] MEDS: DUONEB NEB SCH ×6 (01:15→21:30)
[2022-07-26] MEDS: PEPCID PO SCH ×2 (06:16→17:18)
[2022-07-26] MEDS: PROTONIX IV IVP SCH ×2 (06:16→17:18)
[2022-07-26] MEDS: ROCEPHIN 1 GM/50 ML D5W 1 GM/50 ML BAG IV SCH (09:03)
[2022-07-26] MEDS: DECADRON IVP SCH (09:03)
[2022-07-26] MEDS: VITAMIN D PO SCH (09:03)
[2022-07-26] MEDS: K-DUR PO SCH ×2 (09:04→17:18)
[2022-07-26] MEDS: CARDIZEM PO SCH ×2 (09:04→20:56)
[2022-07-26] MEDS: PRAVACHOL PO SCH (09:04)
[2022-07-26] MEDS: XANAX PO SCH (09:04)
[2022-07-26] MEDS: SYMBICORT 160-4.5 MCG INHALER IH SCH ×2 (09:04→20:55)
--- NOTE | 2022-07-26 09:13 | PN ---
DATE OF SERVICE: 07/23/22 SUBJECTIVE: Patient was seen and examined with the nurse practitioner. The patient has Covid 19 with pneumonia. He is improving and feeling better. Appetite has improved. REVIEW OF SYSTEMS: CONSTITUTIONAL: No night sweats. No fatigue, malaise, lethargy. No fever or chills. HEENT: Eyes: No visual changes. No eye pain. No eye discharge. ENT: No runny nose. No epistaxis. No sinus pain. No sore throat. No odynophagia. No congestion. RESPIRATORY: No cough, no congestion. No hemoptysis. No shortness of breath. CARDIOVASCULAR: No angina symptoms. No CHF symptoms. No atypical chest pain for CAD. No palpitations. No PND. No orthopnea. GASTROINTESTINAL: No abdominal pain. No nausea or vomiting. No diarrhea or constipation. No hematemesis. No hematochezia. GENITOURINARY: No urgency. No frequency. No dysuria. No hematuria. No obstructive symptoms. No discharge. No pain. No significant abnormal bleeding. MUSCULOSKELETAL: No musculoskeletal pain; no joint swelling. NEUROLOGICAL: No headache. No neck pain. No syncope. No seizures. No dizziness. PSYCHIATRIC: Not anxious. No depression. No suicidal thoughts. No homicidal thoughts. SKIN: No rash. No lesions. No wounds. ENDOCRINE: No unexplained weight loss. No weight gain. HEMATOLOGIC/LYMPHATIC: No anemia. No purpura. No petechiae. No prolonged or excessive bleeding. No palpable lymph nodes. PHYSICAL EXAMINATION: GENERAL: The patient is in no distress. HEENT: Head normocephalic, atraumatic. Eyes: Extraocular muscles are intact. Pupils are equal, round and reactive to light and accommodation. Ears: No lesions. Nose appeared normal. Throat: No exudate or erythema. NECK: Supple. No JVD, no carotid bruit. No lymphadenopathy or thyromegaly. LUNGS: Clear to auscultation. Percussion note normal. Chest symmetrical. HEART: S1, S2, no S3. No murmurs. No cyanosis or clubbing. No ascites. Pulses: Dorsalis pedis and posterior tibial pulses +1 to +2 bilaterally. ABDOMEN: Soft. Nontender. Bowel sounds active. No CVA tenderness. No mass felt. EXTREMITIES: No edema. Full range of motion of all extremities, equal. NEUROLOGIC: No focal deficit. Cranial nerves II through XII are grossly intact. No headache. No double vision. SKIN: Not dry. Intact. Turgor - normal. LYMPHATIC: No palpable lymph nodes/no lymphedema. MUSCULOSKELETAL: Normal joints with no swelling. Muscle tone is normal. PLAN: Will continue with same treatment with Remdesivir, steroids, antibiotics. TIME SPENT: More than 30 minutes. Plan and coordination of the patient's care discussed in the presence of nurse. SAUL
--- NOTE | 2022-07-26 09:47 | PN ---
DATE OF SERVICE: 07/24/22 SUBJECTIVE: This 72 year old white male was hospitalized with Covid positive status with pneumonia and respiratory failure. The patient has chronic respiratory failure. The patient's condition seems to have improved. He is feeling a lot better. He wants to go home. REVIEW OF SYSTEMS: CONSTITUTIONAL: No night sweats. No fatigue, malaise, lethargy. No fever or chills. HEENT: Eyes: No visual changes. No eye pain. No eye discharge. ENT: No runny nose. No epistaxis. No sinus pain. No sore throat. No odynophagia. No congestion. RESPIRATORY: No cough, no congestion. No hemoptysis. No shortness of breath. CARDIOVASCULAR: No angina symptoms. No CHF symptoms. No atypical chest pain for CAD. No palpitations. No PND. No orthopnea. GASTROINTESTINAL: Appetite seems to be improving. No abdominal pain. No nausea or vomiting. No diarrhea or constipation. No hematemesis. No hematochezia. GENITOURINARY: No urgency. No frequency. No dysuria. No hematuria. No obstructive symptoms. No discharge. No pain. No significant abnormal bleeding. MUSCULOSKELETAL: No musculoskeletal pain; no joint swelling. NEUROLOGICAL: No headache. No neck pain. No syncope. No seizures. No dizziness. PSYCHIATRIC: Not anxious. No depression. No suicidal thoughts. No homicidal thoughts. SKIN: No rash. No lesions. No wounds. ENDOCRINE: No unexplained weight loss. No weight gain. HEMATOLOGIC/LYMPHATIC: No anemia. No purpura. No petechiae. No prolonged or excessive bleeding. No palpable lymph nodes. PHYSICAL EXAMINATION: GENERAL: The patient is in no distress. VITAL SIGNS: Temperature 98.1, pulse 70, respiratory rate 18, blood pressure 130/73, pulse ox 96%. HEENT: Head normocephalic, atraumatic. Eyes: Extraocular muscles are intact. Pupils are equal, round and reactive to light and accommodation. Ears: No lesions. Nose appeared normal. Throat: No exudate or erythema. NECK: Supple. No JVD, no carotid bruit. No lymphadenopathy or thyromegaly. LUNGS: Decreased breath sounds with good entry. Percussion note normal. Chest symmetrical. HEART: S1, S2, no S3. No murmurs. No cyanosis or clubbing. No ascites. Pulses: Dorsalis pedis and posterior tibial pulses +1 to +2 bilaterally. ABDOMEN: Soft. Nontender. Bowel sounds active. No CVA tenderness. No mass felt. EXTREMITIES: Trace edema. Full range of motion of all extremities, equal. NEUROLOGIC: No focal deficit. Cranial nerves II through XII are grossly intact. No headache. No double vision. SKIN: Not dry. Intact. Turgor - normal. LYMPHATIC: No palpable lymph nodes/no lymphedema. MUSCULOSKELETAL: Normal joints with no swelling. Muscle tone is normal. LABS: Hemoglobin and hematocrit are stable. ASSESSMENT: 1. Pneumonia with Covid positive status, seems to be resolving 2. Severe chronic lung disease with history of smoking PLAN: Continue Remdesivir, steroids and antibiotics TIME SPENT: More than 30 minutes. Plan and coordination of the patient's care discussed in the presence of nurse. SAUL
[2022-07-27] MEDS: DUONEB NEB SCH ×3 (01:04→10:10)
[2022-07-27 05:13] VITALS: BP 135/96; TEMP 97.6
[2022-07-27 05:32] LABS: BASOPHILS % (AUTO) 0.1 % (0.0-3.0); EOSINOPHILS % (AUTO) 0.1 % (0.0-7.0); HEMATOCRIT 32.1 % (42.0-52.0); HEMOGLOBIN 9.7 g/dl (14.0-18.0); IMMATURE GRANULOCYTE # (AUTO) 0.1 (0.0-1.0); IMMATURE GRANULOCYTE % (AUTO) 1.1 % (0.0-5.0); LYMPHOCYTES # (AUTO) 1.1 K/uL (0.60-3.4); LYMPHOCYTES % (AUTO) 10.7 (10.0-50.0); MEAN CORPUSCULAR HEMOGLOBIN 26.6 pg (27.0-31.0); MEAN CORPUSCULAR HGB CONC 30.2 (31.8-35.4); MEAN CORPUSCULAR VOLUME 87.9 fl (80.0-94.0); PLATELET COUNT 453 10^3/uL (140-440); RDW COEFFICIENT OF VARIATION 14.5 % (11.6-14.8); RED BLOOD COUNT 3.65 10^6/ul (4.70-6.10); WHITE BLOOD COUNT 10.28 K/ul (4.2-10.2)
[2022-07-27] MEDS: PROTONIX IV IVP SCH (05:32)
[2022-07-27] MEDS: PEPCID PO SCH (05:32)
[2022-07-27 05:47] LABS: ALANINE AMINOTRANSFERASE 31.7 U/L (0-50); ALBUMIN 3.34 g/dL (3.5-5.0); ALKALINE PHOSPHATASE 51.2 U/L (56-119); ASPARTATE AMINO TRANSFERASE 23.7 U/L (17-59); BILIRUBIN,TOTAL 0.29 mg/dL (0.2-1.3); BLOOD UREA NITROGEN 42.5 mg/dL (9-20); CALCIUM 8.51 mg/dL (8.4-10.2); CARBON DIOXIDE 39.3 mmol/L (22-30.0); CHLORIDE 96.5 mmol/L (98-107); CREATININE 1.14 mg/dL (0.60-1.10); GLUCOSE 132.5 mg/dL (74-106); POTASSIUM 4.36 mmol/L (3.5-5.1); SODIUM 137.2 mmol/L (134.5-145); TOTAL PROTEIN 6.23 g/dL (6.3-8.2)
[2022-07-27] MEDS: CARDIZEM PO SCH (09:55)
[2022-07-27] MEDS: VITAMIN D PO SCH (09:55)
[2022-07-27] MEDS: XANAX PO SCH (09:55)
[2022-07-27] MEDS: PRAVACHOL PO SCH (09:55)
[2022-07-27] MEDS: ROCEPHIN 1 GM/50 ML D5W 1 GM/50 ML BAG IV SCH (09:56)
[2022-07-27] MEDS: DECADRON IVP SCH (09:56)
[2022-07-27] MEDS: K-DUR PO SCH (09:56)
[2022-07-27] MEDS: SYMBICORT 160-4.5 MCG INHALER IH SCH (09:56)
--- NOTE | 2022-07-27 11:07 | DS ---
DATE OF SERVICE: 07/27/22 FINAL DIAGNOSIS: 1. Right upper lobe pneumonia. 2. Covid Positive. 3. End-stage COPD. 4. Acute respiratory failure - resolved. 5. Underlying chronic respiratory failure. 6. Hypertension. 7. Anemia. DISCHARGE INSTRUCTIONS: Followup appointment in the office in one week. MEDICATIONS AT DISCHARGE: Albuterol 90 mcg two puff INH q.i.d. p.r.n. Alprazolam 0.5 mg p.o. daily Arformoterol (Brovan) 15 mcg/2mL INH b.i.d. Breztri 1 INH daily Diltiazem 60 mg p.o. b.i.d. Pravastatin 40 mg p.o. daily Prednisone 5 mg p.o. three times a week NEW PRESCRIPTIONS: Pulmicort 0.5 mg/2 mL suspension for nebulization Cefdinir 300 mg p.o. b.i.d. Protonix 40 mg p.o. b.i.d Prednisone 20 mg p.o. as directed. DISCONTINUED MEDICATIONS: Aspirin 81 mg p.o. daily DIET INSTRUCTIONS: Regular. ACTIVITY: May resume activities as tolerates. Take frequent rest periods. Use assistive devices. DISEASE SPECIFIC EDUCATION: Prednisone by mouth Budesonide by mouth Cefdinir by mouth Pantoprazole by mouth COPD Community acquired pneumonia Covid-19 LAB REVIEW: 07/27/22 04:54: Sodium 137.2, Potassium 4.36, Chloride 96.5 L, Carbon Dioxide 39.3 H, Anion Gap 5.76, BUN 42.5 H, Creatinine 1.14 H, Estimated GFR (MDRD) 63.00, BUN/Creatinine Ratio 37.28, Glucose 132.5 H, Calcium 8.51, Total Bilirubin 0.29, AST 23.7, ALT 31.7, Alkaline Phosphatase 51.2 L, Total Protein 6.23 L, Albumin 3.34 L, Globulin 2.89, Albumin/Globulin Ratio 1.15 07/27/22 04:54: WBC 10.28 H, RBC 3.65 L, Hgb 9.7 L, Hct 32.1 L, MCV 87.9, MCH 26.6 L, MCHC 30.2 L, RDW Coeff of Blanca 14.5, Plt Count 453 H, Immature Gran % (Auto) 1.1, Neut % (Auto) 78.0 H, Lymph % (Auto) 10.7, [place] % (Auto) 10.0, Eos % (Auto) 0.1, Baso % (Auto) 0.1, Neut # (Auto) 8.0 H, Lymph # (Auto) 1.1, [place] # (Auto) 1.0, Eos # (Auto) 0.0, Baso # (Auto) 0.0, Immature Gran # (Auto) 0.1 HOSPITAL COURSE: This 72 year old /WHITE M was hospitalized 07/21/22. The patient is adamant about going home today. He says he is feeling much better. He refuses to stay another day despite strong encouragement. He has been eating well. Renal function and hemoglobin are stable. He has been on 3L nasal cannula since the . He presented to Emergency Department with worsening shortness of breath and fatigue, po2 in the 70s with c02 64 on ABGs at 3L. He has end stage COPD and chronic respiratory failure. He was found to be Covid positive. Chest x-ray showed bilateral pneumonia. Renal function elevated indicating dehydration. The patient was also noted to be anemic with hemoglobin of 8.4. This was a new problem. He was admitted and placed on IV fluids, IV Rocephin and Zithromax along with IV Decadron. Initially started on high flow. ABGs did not improve. He was on vapotherm for 3 days. Hemoglobin decreased and was contributing to shortness of breath and transfused 1 unit of PRBC and started on Protonix 40 mg b.i.d. Stool positive for occult blood. The patient is not a candidate for colonoscopy due to respiratory failure and declines GI referral. CT of chest done indicating right upper lobe pneumonia only On the he was transitioned to 3 L nasal cannula. Hemoglobin stayed at 9.7. He is adamant about going home today and insists he will rest at home. He has nebulizer and home oxygen in place. Will discharge on p.o. Omnicef, Prednisone and Protonix. He is to continue to hold aspirin. We will add Pulmicort at night. He is to continue Duonebs at least 3 times a day. Continue to rest and increase fluids. He needs to continue isolation until . We will followup with him in the office. He is instructed to return to ER if signs and symptoms do not improve. CONDITION: Stable TIME SPENT: More than 60 minutes. SCRIBED BY: SY HILL School Bus Dispatcher scribed while in presence of service performed by Dr. Gill/Maria Dolores Whitaker APRN on 07/27/22 ([id number]) SAUL
--- NOTE | 2022-07-27 11:08 | PCM.PROG ---
Attending Provider: ATTENDING PROVIDER: Dr. DENYS FRANCO MD This patient is seen with Maria Dolores Whitaker, Nurse Practitioner. DATE OF SERVICE: 07/27/22 SUBJECTIVE: This 72 year old /WHITE M was hospitalized 07/21/22. The patient is adamant about going home today. He says he is feeling much better. He refuses to stay another day despite strong encouragement. He has been eating well. Renal function and hemoglobin are stable. He has been on 3L nasal cannula since the . REVIEW OF SYSTEMS: CONSTITUTIONAL: Fatigue. No night sweats. No malaise, lethargy. No fever or chills. HEENT: Eyes: No visual changes. No eye pain. No eye discharge. ENT: No runny nose. No epistaxis. No sinus pain. No odynophagia. No congestion. RESPIRATORY: Cough and shortness of breath. No hemoptysis. CARDIOVASCULAR: No angina symptoms. No CHF symptoms. No atypical chest pain for CAD. No palpitations. No orthopnea.. GASTROINTESTINAL: No abdominal pain. No nausea or vomiting. No diarrhea or constipation. No hematemesis. No hematochezia. GENITOURINARY: No urgency. No frequency. No dysuria. No hematuria. No obstructive symptoms. No discharge. No pain. No significant abnormal bleeding. MUSCULOSKELETAL: No musculoskeletal pain; no joint swelling. NEUROLOGICAL: Awake, alert, oriented to time, place and person. No headache. No neck pain. No syncope. No seizures. No dizziness. PSYCHIATRIC: Not anxious. No depression. No suicidal thoughts. No homicidal thoughts. SKIN: No rash. No lesions. No wounds. ENDOCRINE: No unexplained weight loss. No weight gain. HEMATOLOGIC/LYMPHATIC: No anemia. No purpura. No petechiae. No prolonged or excessive bleeding. No palpable lymph nodes. PHYSICAL EXAMINATION: GENERAL: The patient is awake, alert and oriented, lying/sitting in bed in no distress. VITAL SIGNS: Temperature 97.6 F, Pulse 77, Respiratory Rate 18, BP 135/96, Pulse Ox 94% HEENT: Head normocephalic, atraumatic. Eyes: Extraocular muscles are intact. Pupils are equal, round and reactive to light and accommodation. Ears: No lesions. Nose appeared normal. Throat: No exudate or erythema. NECK: Supple. No JVD, no carotid bruit. No lymphadenopathy or thyromegaly. LUNGS: Severely diminished breath sounds. Clear to auscultation. Percussion note normal. Chest symmetrical. HEART: S1, S2, no S3. No murmurs. No cyanosis or clubbing. No ascites. Pulses: Dorsalis pedis and posterior tibial pulses +1 to +2 both sides. ABDOMEN: Soft. Non-tender. Bowel sounds active. No CVA tenderness. No mass felt. EXTREMITIES: No edema. Full range of motion of all extremities, equal. NEUROLOGIC: No focal deficit. Cranial nerves II through XII are grossly intact. No headache. No double vision. SKIN: Not dry. Intact. Turgor-normal. LYMPHATIC: No palpable lymph nodes/no lymphedema. MUSCULOSKELETAL: Normal joints with no swelling. Muscle tone is normal. LAB REVIEW: 07/27/22 04:54 07/27/22 04:54 07/27/22 04:54: Sodium 137.2, Potassium 4.36, Chloride 96.5 L, Carbon Dioxide 39.3 H, Anion Gap 5.76, BUN 42.5 H, Creatinine 1.14 H, Estimated GFR (MDRD) 63.00, BUN/Creatinine Ratio 37.28, Glucose 132.5 H, Calcium 8.51, Total Bilirubin 0.29, AST 23.7, ALT 31.7, Alkaline Phosphatase 51.2 L, Total Protein 6.23 L, Albumin 3.34 L, Globulin 2.89, Albumin/Globulin Ratio 1.15 07/27/22 04:54: WBC 10.28 H, RBC 3.65 L, Hgb 9.7 L, Hct 32.1 L, MCV 87.9, MCH 26.6 L, MCHC 30.2 L, RDW Coeff of Blanca 14.5, Plt Count 453 H, Immature Gran % (Auto) 1.1, Neut % (Auto) 78.0 H, Lymph % (Auto) 10.7, [place] % (Auto) 10.0, Eos % (Auto) 0.1, Baso % (Auto) 0.1, Neut # (Auto) 8.0 H, Lymph # (Auto) 1.1, [place] # (Auto) 1.0, Eos # (Auto) 0.0, Baso # (Auto) 0.0, Immature Gran # (Auto) 0.1 ASSESSMENT: Please see below. 1. Right upper lobe pneumonia. 2. Covid Positive. 3. End-stage COPD. 4. Acute respiratory failure - resolved. 5. Underlying chronic respiratory failure. 6. Hypertension. 7. Anemia. PLAN: 1. Will discharge home. 2. The patient is to go home on Omnicef 300 mg b.i.d. times 5 days. 3. Prednisone 20 mg b.i.d. times four days then daily times three days. 4. Will add Pulmicort neb 0.5 at night. 5. He will start Protonix 40 mg b.i.d. 6. Dyazide is p.r.n. 7. Continue to hold aspirin. 8. He has nebulizer at home and is to continue with Duonebs 3 times a day MAGALIE. 9. Followup next week in the office. Plan and coordination of the patient's care discussed in the presence of Fork Repairer and nurse. CONDITION: Stable SCRIBED BY: SY HILL [employer] Wel[employer] Machine Operator scribed while in presence of service performed by Dr. Franco/Maria Dolores Whitaker APRN on 07/27/22 ([id number])
--- NOTE | 2022-07-28 07:27 | PN ---
DATE OF SERVICE: 07/25/22 SUBJECTIVE: 72-year-old white male hospitalized with Covid positive status with pneumonia, severe chronic lung disease with history of heavy smoking. The patient's condition has slowly improved to the point that he is now on 3L. His blood gases this morning were a lot better. He is off Vapotherm now. REVIEW OF SYSTEMS: CONSTITUTIONAL: No night sweats. No fatigue, malaise, lethargy. No fever or chills. HEENT: Eyes: No visual changes. No eye pain. No eye discharge. ENT: No runny nose. No epistaxis. No sinus pain. No sore throat. No odynophagia. No congestion. RESPIRATORY: No cough, short of breath as usual on exertion. No hemoptysis. CARDIOVASCULAR: No angina symptoms. No CHF symptoms. No atypical chest pain for CAD. No palpitations. No PND. No orthopnea. GASTROINTESTINAL: Appetite has improved. No abdominal pain. No nausea or vomiting. No diarrhea or constipation. No hematemesis. No hematochezia. GENITOURINARY: No urgency. No frequency. No dysuria. No hematuria. No obstructive symptoms. No discharge. No pain. No significant abnormal bleeding. MUSCULOSKELETAL: No musculoskeletal pain; no joint swelling. NEUROLOGICAL: No headache. No neck pain. No syncope. No seizures. No dizziness. PSYCHIATRIC: Not anxious. No depression. No suicidal thoughts. No homicidal thoughts. SKIN: No rash. No lesions. No wounds. ENDOCRINE: No unexplained weight loss. No weight gain. HEMATOLOGIC/LYMPHATIC: No anemia. No purpura. No petechiae. No prolonged or excessive bleeding. No palpable lymph nodes. PHYSICAL EXAMINATION: VITAL SIGNS: Temperature 97.6, pulse 65, respiratory rate 16, blood pressure 136/76, pulse ox 94% on 3L. HEENT: Head normocephalic, atraumatic. Eyes: Extraocular muscles are intact. Pupils are equal, round and reactive to light and accommodation. Ears: No lesions. Nose appeared normal. Throat: No exudate or erythema. NECK: Supple. No JVD, no carotid bruit. No lymphadenopathy or thyromegaly. LUNGS: Decreased breath sounds. Clear to auscultation. Percussion note normal. Chest symmetrical. HEART: S1, S2, no S3. No murmurs. No cyanosis or clubbing. No ascites. Pulses: Dorsalis pedis and posterior tibial pulses +1 to +2 bilaterally. ABDOMEN: Soft. Nontender. Bowel sounds active. No CVA tenderness. No mass felt. EXTREMITIES: Trace edema. Full range of motion of all extremities, equal. NEUROLOGIC: No focal deficit. Cranial nerves II through XII are grossly intact. No headache. No double vision. SKIN: Not dry. Intact. Turgor - normal. LYMPHATIC: No palpable lymph nodes/no lymphedema. MUSCULOSKELETAL: Normal joints with no swelling. Muscle tone is normal. LABS: Hemoglobin 9.5, hematocrit 31, WBC 7,900, normal differential. Creatinine 1.1, BUN 36, potassium 4.1. ASSESSMENT/PLAN: 1. Covid positive status with pneumonia seems to be resolving. The patient is on Remdesivir and several antibiotics. Continue the same with steroids and inhalers. 2. Chronic respiratory failure. 3. Chronic lung disease. 4. Counseling for smoking done. CONDITION: Stable improving. TIME SPENT: More than 30 minutes. Plan and coordination of the patient's care discussed in the presence of nurse. SAUL
--- NOTE | 2022-07-28 07:36 | PN ---
DATE OF SERVICE: 07/26/22 SUBJECTIVE: The patient was seen and examined today. The patient's condition is improved. He is up and about in the room. Appetite has improved. He wants to go home. He receives last dose of Remdesivir this morning. REVIEW OF SYSTEMS: CONSTITUTIONAL: No night sweats. Some fatigue. No malaise, lethargy. No fever or chills. HEENT: Eyes: No visual changes. No eye pain. No eye discharge. ENT: No runny nose. No epistaxis. No sinus pain. No sore throat. No odynophagia. No congestion. RESPIRATORY: Mild cough with congestion. No hemoptysis. No shortness of breath. CARDIOVASCULAR: No angina symptoms. No CHF symptoms. No atypical chest pain for CAD. No palpitations. No PND. No orthopnea. GASTROINTESTINAL: No abdominal pain. No nausea or vomiting. No diarrhea or constipation. No hematemesis. No hematochezia. GENITOURINARY: No urgency. No frequency. No dysuria. No hematuria. No obstructive symptoms. No discharge. No pain. No significant abnormal bleeding. MUSCULOSKELETAL: No musculoskeletal pain; no joint swelling. NEUROLOGICAL: No headache. No neck pain. No syncope. No seizures. No dizziness. PSYCHIATRIC: Not anxious. No depression. No suicidal thoughts. No homicidal thoughts. SKIN: No rash. No lesions. No wounds. ENDOCRINE: No unexplained weight loss. No weight gain. HEMATOLOGIC/LYMPHATIC: No anemia. No purpura. No petechiae. No prolonged or excessive bleeding. No palpable lymph nodes. PHYSICAL EXAMINATION: GENERAL: The patient is oriented to time, place and person. HEENT: Head normocephalic, atraumatic. Eyes: Extraocular muscles are intact. Pupils are equal, round and reactive to light and accommodation. Ears: No lesions. Nose appeared normal. Throat: No exudate or erythema. NECK: Supple. No JVD, no carotid bruit. No lymphadenopathy or thyromegaly. LUNGS: Good air entry with mild expiratory wheeze. Percussion note normal. Chest symmetrical. HEART: S1, S2, no S3. No murmurs. No cyanosis or clubbing. No ascites. Pulses: Dorsalis pedis and posterior tibial pulses +1 to +2 bilaterally. ABDOMEN: Soft. Nontender. Bowel sounds active. No CVA tenderness. No mass felt. EXTREMITIES: No edema. Full range of motion of all extremities, equal. NEUROLOGIC: No focal deficit. Cranial nerves II through XII are grossly intact. No headache. No double vision. SKIN: Not dry. Intact. Turgor - normal. LYMPHATIC: No palpable lymph nodes/no lymphedema. MUSCULOSKELETAL: Normal joints with no swelling. Muscle tone is normal. ASSESSMENT: 1. Covid positive status with pneumonia and respiratory failure seems to be under control. PLAN: 1. To continue antibiotics, steroids, nebs. 2. The patient will have an echocardiogram to evaluate LV function. According to the patient his shortness of breath is out of proportion even prior to his Covid-19 discussed a total of 10 days after the patient's positive Covid. The patient definitely needs to be quarantined, 10 days will be ideal total with history of pneumonia. TIME SPENT: More than 30 minutes. Plan and coordination of the patient's care discussed in the presence of nurse. SAUL
--- NOTE | 2022-07-30 12:00 | PN ---
DATE OF SERVICE: 07/27/22 SUBJECTIVE: The patient is seen and examined with the nurse practitioner. The patient's condition has improved remarkably. He is insistent on going home. REVIEW OF SYSTEMS: CONSTITUTIONAL: No night sweats. No fatigue, malaise, lethargy. No fever or chills. HEENT: Eyes: No visual changes. No eye pain. No eye discharge. ENT: No runny nose. No epistaxis. No sinus pain. No sore throat. No odynophagia. No congestion. RESPIRATORY: Shortness of breath as usual. No cough, no congestion. No hemoptysis. CARDIOVASCULAR: No angina symptoms. No CHF symptoms. No atypical chest pain for CAD. No palpitations. No PND. No orthopnea. GASTROINTESTINAL: Appetite has improved remarkably. No abdominal pain. No nausea or vomiting. No diarrhea or constipation. No hematemesis. No hematochezia. GENITOURINARY: No urgency. No frequency. No dysuria. No hematuria. No obstructive symptoms. No discharge. No pain. No significant abnormal bleeding. MUSCULOSKELETAL: No musculoskeletal pain; no joint swelling. NEUROLOGICAL: No headache. No neck pain. No syncope. No seizures. No dizziness. PSYCHIATRIC: Not anxious. No depression. No suicidal thoughts. No homicidal thoughts. SKIN: No rash. No lesions. No wounds. ENDOCRINE: No unexplained weight loss. No weight gain. HEMATOLOGIC/LYMPHATIC: No anemia. No purpura. No petechiae. No prolonged or excessive bleeding. No palpable lymph nodes. PHYSICAL EXAMINATION: HEENT: Head normocephalic, atraumatic. Eyes: Extraocular muscles are intact. Pupils are equal, round and reactive to light and accommodation. Ears: No lesions. Nose appeared normal. Throat: No exudate or erythema. NECK: Supple. No JVD, no carotid bruit. No lymphadenopathy or thyromegaly. LUNGS: Decreased breath sounds but good air entry. Clear to auscultation. Percussion note normal. Chest symmetrical. HEART: S1, S2, no S3. No murmurs. No cyanosis or clubbing. No ascites. Pulses: Dorsalis pedis and posterior tibial pulses +1 to +2 bilaterally. ABDOMEN: Soft. Nontender. Bowel sounds active. No CVA tenderness. No mass felt. EXTREMITIES: No edema. Full range of motion of all extremities, equal. NEUROLOGIC: No focal deficit. Cranial nerves II through XII are grossly intact. No headache. No double vision. SKIN: Not dry. Intact. Turgor - normal. LYMPHATIC: No palpable lymph nodes/no lymphedema. MUSCULOSKELETAL: Normal joints with no swelling. Muscle tone is normal. LABS: Stable. ASSESSMENT: 1. No evidence of active GI bleed. The patient has declined any further workup in the way of GI consultation or any EGD or colonoscopy. He doesn't want any of those things done. He has been explained about Eliquis and reason for investigation so that we can start him on that and he understands it and declined. PLAN: The patient will be discharged home on antibiotics, steroids, nebs, inhalers. He was Covid positive. The patient had an echo before discharge which showed normal LV contractility, enlarged RV cavity, LA cavity, borderline LVH. Condition: Stable. TIME SPENT: More than 30 minutes. Plan and coordination of the patient's care discussed in the presence of nurse. SAUL
--- NOTE | 2022-07-30 12:34 | PN ---
CODING FOR BILLING 07/21/22 ADMISSION DAY LEVEL 5 07/22/22 EXTENSIVE 07/23/22 EXTENSIVE 07/24/22 EXTENSIVE 07/25/22 INTERMEDIATE 07/26/22 INTERMEDIATE 07/27/22 FINAL DAY - D IN DISCHARGE MTDD
--- NOTE | 2022-07-31 11:19 | ECHO2D ---
Date of Exam: 07/27/2022 Ordering Physician: DR. DENYS FRANCO Room #: S1 Reason for Echo: SOB, POST COVID, RESPIRATORY FAILURE, SEVERE COPD M-Mode Normal Adult Results LV Dimensions Normal Adult Results AoV Opening excursions >1.6 >1.6 LVEDD-base- 3.5-5.8 4.9 Ao root dimensions 2.0-3.7 3.8 LVESD-base- 3.1-4.6 L. Atrium dimensions 1.9-3.8 4.5 Post. Wall thickness 0.8-1.1 1.2 IV septum (thickness) 0.7-1.2 1.4 Post. Wall excursion 0.72-1.3 NORMAL Septal motion NORMAL Systolic motion R. Ventricular cavity 1.5-2.0 4.2 LVEF 60% >60% Paradoxical septal wall motion NORMAL 2-D : ENLARGED LEFT ATRIAL AND RIGHT VENTRICLE CAVITIES--NORMAL VALVES--NORMAL LEFT VENTRICLE SIZE AND LEFT VENTRICLE CONTRACTILITY--NO EFFUSION, NO THROMBUS M-MODE: MV: NORMAL AV: NORMAL TV: NORMAL PV: CHAMBER SIZE: ENLARGED RIGHT VENTRICLE AND LEFT ATRIAL CAVITIES WALL MOTION: NORMAL PERICARDIUM: NORMAL INTERPRETATION: 1. LEFT VENTRICLE HYPERTROPHY WITH ENLARGED LEFT ATRIAL CAVITY 2. ENLARGED RIGHT VENTRICLE CAVITY 3. NORMAL VALVES 4. NORMAL LEFT VENTRICLE SIZE AND LEFT VENTRICLE CONTRACTILITY MTDD
== END 2022-07-27 12:32 | disposition home or self-care (01) | DRG 193 ==
LOC: ED 10:08 → SCU 12:12
PROVIDERS: ADMIT Internal Medicine; ATTEND Internal Medicine
DX: D64.9 Anemia, unspecified; Z51.81 Encounter for therapeutic drug level monitoring; J84.114 Acute interstitial pneumonitis; J96.22 Acute and chronic respiratory failure with hypercapnia; R06.02 Shortness of breath; Z99.81 Dependence on supplemental oxygen; E87.6 Hypokalemia; U07.1 COVID-19; J44.9 Chronic obstructive pulmonary disease, unspecified; Z79.899 Other long term (current) drug therapy; J18.9 Pneumonia, unspecified organism; Z20.828 Contact with and (suspected) exposure to other viral communicable diseases; N28.9 Disorder of kidney and ureter, unspecified; K92.1 Melena; R00.0 Tachycardia, unspecified; J96.21 Acute and chronic respiratory failure with hypoxia; Z20.822 Contact with and (suspected) exposure to COVID-19